=== PATIENT | female | born 1995 | race Caucasian/White ===

== ENCOUNTER 2022-05-24 05:42 | Emergency (ER) | payer OTHER ==
[~2022-05-24] VITALS: Ht 165.1 cm; Wt 58.0 kg
[2022-05-24 05:49] VITALS: BP 126/81
[2022-05-24] MEDS ORDERED: DEXAMETHASONE 4MG TABLET PO ONE (10:15)
[2022-05-24] MEDS ORDERED: IPRATROPIUM/ALBUTEROL 0.5-3(2.5)MG/3ML NEB HHN ONE ×2 (10:15→11:45)
== END 2022-05-24 13:22 | disposition home or self-care (01) ==
LOC: ER 05:42
DX: J45.901 Unspecified asthma with (acute) exacerbation (principal); Z88.0 Allergy status to penicillin
CPT/HCPCS: 81025; 94640; 99283; J8540; Z7610